=== PATIENT | female | born 1955 | race Caucasian/White ===

== ENCOUNTER 2019-10-02 14:19 | Outpatient (CLI) | payer OTHER, SELFPAY ==
--- NOTE | 2019-10-02 14:30 | MM_ITS ---
WS: [id number] BILATERAL DIGITAL DIAGNOSTIC MAMMOGRAM MAMMOGRAPHY WITH CAD CLINICAL INFORMATION: PALPABLE RT BREAST MASS; BREAST PAIN COMPARISON: None. TECHNIQUE: Bilateral CC, MLO, and ML views. FINDINGS: The breasts are composed of heterogeneous fibroglandular density, which can limit the detection of sm all underlying mass lesions. Palpable marker right breast. Dense heterogeneous and pleomorphic calcif ications deep to the palpable marker mid depth right breast along the posterior nipple line. Some of these are in a ductal distribution. Dense parenchymal tissue along the posterior nipple line. Ultraso und right breast is pending. No suspicious mammographic abnormalities left breast. ULTRASOUND BREAST RIGHT TECHNIQUE: Ultrasound right breast focused area of concern. CLINICAL INFORMATION: PALPABLE RT BREAST MASS; BREAST PAIN COMPARISON: None. FINDINGS: Ultrasound right breast 8:00 position deep to the areola along the posterior nipple line. Heterogeneo us dense ill-defined shadowing lesion measuring 2.3 x 0.7 CM at the 9:00 position. Recommend further evaluation with ultrasound-guided biopsy. MM/[place] [id number] IMPRESSION: BI-RADS: 4C-Suspicious: Moderate FOLLOW UP: US Guided Biopsy Recommended IN ADDITION, RECOMMEND STEREOTACTIC BIOPSY OF THE HETEROGENEOUS AND PLEOMORPHIC CALCIFICATIONS ALONG THE RIGHT POSTERIOR NIPPLE LINE.
== END 2019-10-02 14:20 | disposition home or self-care (01) ==
LOC: RADSHAW 14:24
PROVIDERS: PCP Nurse Practitioner; Visit Provider Nurse Practitioner
DX: N63.13 Unspecified lump in the right breast, lower outer quadrant (principal); N64.4 Mastodynia
CPT/HCPCS: 76642; 77066

== ENCOUNTER 2019-10-07 12:35 | Outpatient (CLI) | payer OTHER, SELFPAY ==
--- NOTE | 2019-10-07 12:45 | MM_ITS ---
WS: [id number] STEREOTACTIC RIGHT BREAST BIOPSY WITH VACUUM ASSISTANCE HISTORY: Linear group of calcifications in the posterior RIGHT breast. These are separate from the la rger cluster of calcifications in the anterior breast with the soft tissues associated mass. This lar handy more anterior mass will be biopsied by ultrasound. COMPARISON: 10/02/2019 Procedure, risks and complications were explained to the patient. Medications and prior radiographs a re reviewed. RIGHT breast calcifications are located, posterior near the 8-9 o'clock axis. Calcifications are targ eted in the oblique projection. The skin is cleansed with ChloraPrep and anesthetized with 1% buffere d lidocaine. Deeper soft tissues anesthetized with a combination of lidocaine and epinephrine. Small dermatome is made. Needle advanced into the RIGHT breast. Stereotactic imaging reveals appropriate po sitioning adjacent calcifications. Multiple vacuum-assisted core biopsies are obtained. No complicati ons were encountered. Post biopsy specimen radiograph reveals numerous calcifications. Biopsy clip is placed in the cavity. Post imaging reveals good placement of the clip. No migration. Pressures held for approximately 15 minutes. No bleeding. Dressing applied. Patient discharged with n o complications. There is no bleeding. With any questions or complications patient is to return. MM/MM surgical specimen RT IMPRESSION: 1. Uncomplicated RIGHT breast stereotactic biopsy. This biopsy was of the calc ifications in the linear distribution in the posterior inferior RIGHT breast. 2. Specimen contains numerous calcifications. Pathology: Ductal carcinoma in situ. Multifocal dystrophic calcifications and f ibrocystic disease. RECOMMENDATION: Surgical and oncologic follow-up.
--- NOTE | 2019-10-07 12:45 | MM_ITS ---
WS: [id number] STEREOTACTIC RIGHT BREAST BIOPSY WITH VACUUM ASSISTANCE HISTORY: Linear group of calcifications in the posterior RIGHT breast. These are separate from the la rger cluster of calcifications in the anterior breast with the soft tissues associated mass. This lar handy more anterior mass will be biopsied by ultrasound. COMPARISON: 10/02/2019 Procedure, risks and complications were explained to the patient. Medications and prior radiographs a re reviewed. RIGHT breast calcifications are located, posterior near the 8-9 o'clock axis. Calcifications are targ eted in the oblique projection. The skin is cleansed with ChloraPrep and anesthetized with 1% buffere d lidocaine. Deeper soft tissues anesthetized with a combination of lidocaine and epinephrine. Small dermatome is made. Needle advanced into the RIGHT breast. Stereotactic imaging reveals appropriate po sitioning adjacent calcifications. Multiple vacuum-assisted core biopsies are obtained. No complicati ons were encountered. Post biopsy specimen radiograph reveals numerous calcifications. Biopsy clip is placed in the cavity. Post imaging reveals good placement of the clip. No migration. Pressures held for approximately 15 minutes. No bleeding. Dressing applied. Patient discharged with n o complications. There is no bleeding. With any questions or complications patient is to return. MM/[place] vac assist [id number] IMPRESSION: 1. Uncomplicated RIGHT breast stereotactic biopsy. This biopsy was of the calc ifications in the linear distribution in the posterior inferior RIGHT breast. 2. Specimen contains numerous calcifications. Pathology: Ductal carcinoma in situ. Multifocal dystrophic calcifications and f ibrocystic disease. RECOMMENDATION: Surgical and oncologic follow-up.
--- NOTE | 2019-10-07 12:45 | MM_ITS ---
WS: [id number] STEREOTACTIC RIGHT BREAST BIOPSY WITH VACUUM ASSISTANCE HISTORY: Linear group of calcifications in the posterior RIGHT breast. These are separate from the la rger cluster of calcifications in the anterior breast with the soft tissues associated mass. This lar handy more anterior mass will be biopsied by ultrasound. COMPARISON: 10/02/2019 Procedure, risks and complications were explained to the patient. Medications and prior radiographs a re reviewed. RIGHT breast calcifications are located, posterior near the 8-9 o'clock axis. Calcifications are targ eted in the oblique projection. The skin is cleansed with ChloraPrep and anesthetized with 1% buffere d lidocaine. Deeper soft tissues anesthetized with a combination of lidocaine and epinephrine. Small dermatome is made. Needle advanced into the RIGHT breast. Stereotactic imaging reveals appropriate po sitioning adjacent calcifications. Multiple vacuum-assisted core biopsies are obtained. No complicati ons were encountered. Post biopsy specimen radiograph reveals numerous calcifications. Biopsy clip is placed in the cavity. Post imaging reveals good placement of the clip. No migration. Pressures held for approximately 15 minutes. No bleeding. Dressing applied. Patient discharged with n o complications. There is no bleeding. With any questions or complications patient is to return. MM/[place] [id number] IMPRESSION: 1. Uncomplicated RIGHT breast stereotactic biopsy. This biopsy was of the calc ifications in the linear distribution in the posterior inferior RIGHT breast. 2. Specimen contains numerous calcifications. Pathology: Ductal carcinoma in situ. Multifocal dystrophic calcifications and f ibrocystic disease. RECOMMENDATION: Surgical and oncologic follow-up.
--- NOTE | 2019-10-07 12:49 | US_ITS ---
WS: [id number] ULTRASOUND-GUIDED RIGHT BREAST BIOPSY HISTORY: Mass with calcifications at 8:00. COMPARISON: 10/02/2019 Procedure, risks and complications are explained to the patient. Medications are reviewed. Consent is obtained. The soft tissue mass with calcifications in the RIGHT breast is localized with ultrasound. Skin is cl eansed with ChloraPrep and anesthetized with 1% buffered lidocaine. Small dermatome is made. Under st erile conditions mass is biopsied with a 14-gauge Achieve needle. Multiple core biopsies are performe d. Material placed in formalin and sent to pathology for review. No complications encountered. Breast tissue marker (Bard ultrasound enhanced ribbon): Yes. Patient left the radiology suite with no complications. Patient is instructed to return to [facility] [place] or [facility] with any concerns. 1. Uncomplicated core needle biopsy RIGHT breast mass with calcifications at 8:00. US/[place] [id number] IMPRESSION: PATHOLOGY: Focal infiltrating ductal adenocarcinoma, moderately differentiated. Multifocal ductal carcinoma in situ with dystrophic calcifications and necrosi s. RECOMMENDATION: Follow-up with oncology and surgery.
[2019-10-16 09:16] LABS: Miscellaneous Test See Scanned Lab Rpt
== END 2019-10-07 12:36 | disposition home or self-care (01) ==
LOC: RADSHAW 12:37
PROVIDERS: PCP Nurse Practitioner; Visit Provider Nurse Practitioner
DX: C50.511 Malignant neoplasm of lower-outer quadrant of right female breast (principal); R92.1 Mammographic calcification found on diagnostic imaging of breast; N60.11 Diffuse cystic mastopathy of right breast
CPT/HCPCS: 19081; 19083; 77065; 88305; 88361; 88367; 88374; J2001

== ENCOUNTER 2019-10-26 13:43 | Outpatient (CLI) | payer OTHER, SELFPAY ==
--- NOTE | 2019-10-30 10:02 | ONC CON_ITS ---
Dr. Monroe New Patient Note Patient: Karen Polo Unit #: [id number]: 1955 Dicatated By: Young Monroe M.D.Date of Visit: Oct 26, 2019 Onc MED New Patient/Consult Referring Physician: Hailee Malloy A.P.N. History of Present Illness: Mrs. Karen Polo, is a 64-year-old female with right nipple dryness, and some discharge subsequently developed mass in her right breast for which she underwent mammogram on 10/02/2019 which showed dense heterogeneous and pleomorphic calcification in the right breast along the posterior nipple line, further evaluated with ultrasound of right breast showed heterogeneous dense ill-defined shadowing lesion measuring 2.3 x 0.7 cm at 9:00 position. On 10/07/2019, she underwent ultrasound-guided biopsy of right breast mass which showed multifocal dystrophic calcification, ductal carcinoma in situ, focal infiltrating ductal adenocarcinoma, moderately differentiated. Patient denies any right axilla lymphadenopathy . Patient has history of chronic neck and low back pain due to arthritis. History of dyslipidemia. Denies any headaches blurred vision double vision denies any new bony pains denies any jaundice denies any weight loss denies any other new symptoms. Past Medical History: Ms. Polo's medical history consists of arthritis and dyslipidemia. Past Surgical History: Ms. Polo's surgical/procedural history consists of section x2. Medications: blueberry extract 1 Capsule Oral daily, ARIANA 1 Capsule Oral daily, Grape Seed Extract 1 Capsule Oral daily, Mag Glycinate 1 Tablet (of 100 mg) Oral daily, Melatonin 1 Capsule Oral at bedtime, Methyl Folate 1 Powder daily, mushrooms 1 Capsule daily, Ayer 3 1 Capsule Oral daily, Selenium 1 Capsule Oral daily, Turmeric 1 Capsule Oral daily, Vitamin B-6 1 Tablet (of 250 mg) Oral daily, Vitamin C 1 Capsule Oral daily, Vitamin D-3 1 Tablet (of 125 mcg ) Oral daily Allergies: No Known Allergies. Social History: Ms. Polo is . Ms. Polo has never smoked. She has no history of drinking. Family History: Ms. Polo's mother is alive. Ms. Pool's father at age 86: blood clot. pt states she has a family history of aunts and uncles having cancer. ovarian, leukemia, throat and lung. Review Of Symptoms: Constitutional - Appetite is good and weight is stable. No fever, chills, hot flashes, or night sweats. Energy level is good, ENMT - No sinus congestion/drainage. No mouth sores. No sore throat or difficulty swallowing, Hematologic/Lymphatic - No abnormal bruising or bleeding, Respiratory - No shortness of breath. No cough. No pleuritic pain or hemoptysis, Cardiovascular - No angina pain. No palpitations, Gastrointestinal - No nausea or vomiting. No heartburn or acid reflux. No diarrhea or constipation. No blood in the stool or black stools, Genitourinary (F) - No dysuria or hematuria. No urinary frequency. No urgency or incontinence, Musculoskeletal - No joint or bone pain, Neurologic - No headache or dizziness. No numbness/paresthesias or other focal neurologic symptoms, Psychiatric - Positive for situational anxiety, no depression. No insomnia. Vital Signs: Most recent vitals are not available for this patient. Performance Status: 0 - Fully active, able to carry on all predisease activities without restrictions. (ECOG) Physical Examination: ENMT - No oral exudates, ulcers, masses, thrush or mucositis. Oropharynx clear. Tongue normal, Respiratory - Lungs are clear to auscultation without rhonchi or wheezing, Cardiovascular - Regular rate and rhythm of heart , no right axillary lymphadenopathy noticed, Abdomen - Non-tender, non-distended, Good bowel sounds. No guarding or rebound tenderness. No pulsatile masses, Extremities - no edema. Lab/Imaging: Most recent lab results are not available for this patient. Impression: Infiltrating ductal adenocarcinoma, moderately differentiated per ultrasound-guided biopsy of right breast done on 10/07/2019 Mammogram done on 10/02/2019 showed dense heterogeneous pleomorphic calcification in the right breast, ultrasound right breast confirmed 2.3 x 0.7 cm heterogeneous dense ill-defined shadowing lesion at 9:00 position. History of chronic neck/lower back pain due to arthritis. Plan: Discussed with patient regarding her disease status, and further treatment options . At this point, we'll refer her to surgery for evaluation, patient was informed that she can consider lumpectomy followed by radiation therapy or modified radical mastectomy followed by reconstruction. Patient will discuss options with her and then with the surgeon. We will review molecular profiling e.g. ER/[place] status ,HER-2/flavio status and based on that we will make further recommendations Patient will return to clinic 1 week after surgery for further discussion and planning. Signed By: Young Monroe M.D. <<Signature on File>>
--- NOTE | 2019-12-07 13:46 | ONC CON_ITS ---
Dr. Monroe New Patient Note Patient: Karen Polo Unit #: [id number]: 1955 Dicatated By: Young Monroe M.D.Date of Visit: Oct 26, 2019 Onc MED New Patient/Consult Referring Physician: Hailee Malloy A.P.N. History of Present Illness: Mrs. Karen Polo, is a 64-year-old female with right nipple dryness, and some discharge subsequently developed mass in her right breast for which she underwent mammogram on 10/02/2019 which showed dense heterogeneous and pleomorphic calcification in the right breast along the posterior nipple line, further evaluated with ultrasound of right breast showed heterogeneous dense ill-defined shadowing lesion measuring 2.3 x 0.7 cm at 9:00 position. On 10/07/2019, she underwent ultrasound-guided biopsy of right breast mass which showed multifocal dystrophic calcification, ductal carcinoma in situ, focal infiltrating ductal adenocarcinoma, moderately differentiated. Patient denies any right axilla lymphadenopathy . Patient has history of chronic neck and low back pain due to arthritis. History of dyslipidemia. Denies any headaches blurred vision double vision denies any new bony pains denies any jaundice denies any weight loss denies any other new symptoms. Past Medical History: Ms. Polo's medical history consists of arthritis and dyslipidemia. Past Surgical History: Ms. Polo's surgical/procedural history consists of section x2. Medications: blueberry extract 1 Capsule Oral daily, ARIANA 1 Capsule Oral daily, Grape Seed Extract 1 Capsule Oral daily, Mag Glycinate 1 Tablet (of 100 mg) Oral daily, Melatonin 1 Capsule Oral at bedtime, Methyl Folate 1 Powder daily, mushrooms 1 Capsule daily, [place] 3 1 Capsule Oral daily, Selenium 1 Capsule Oral daily, Turmeric 1 Capsule Oral daily, Vitamin B-6 1 Tablet (of 250 mg) Oral daily, Vitamin C 1 Capsule Oral daily, Vitamin D-3 1 Tablet (of 125 mcg ) Oral daily Allergies: No Known Allergies. Social History: Ms. Polo is . Ms. Polo has never smoked. She has no history of drinking. Family History: Ms. Polo's mother is alive. Ms. Polo's father at age 86: blood clot. pt states she has a family history of aunts and uncles having cancer. ovarian, leukemia, throat and lung. Review Of Symptoms: Constitutional - Appetite is good and weight is stable. No fever, chills, hot flashes, or night sweats. Energy level is good, ENMT - No sinus congestion/drainage. No mouth sores. No sore throat or difficulty swallowing, Hematologic/Lymphatic - No abnormal bruising or bleeding, Respiratory - No shortness of breath. No cough. No pleuritic pain or hemoptysis, Cardiovascular - No angina pain. No palpitations, Gastrointestinal - No nausea or vomiting. No heartburn or acid reflux. No diarrhea or constipation. No blood in the stool or black stools, Genitourinary (F) - No dysuria or hematuria. No urinary frequency. No urgency or incontinence, Musculoskeletal - No joint or bone pain, Neurologic - No headache or dizziness. No numbness/paresthesias or other focal neurologic symptoms, Psychiatric - Positive for situational anxiety, no depression. No insomnia. Vital Signs: Most recent vitals are not available for this patient. Performance Status: 0 - Fully active, able to carry on all predisease activities without restrictions. (ECOG) Physical Examination: ENMT - No oral exudates, ulcers, masses, thrush or mucositis. Oropharynx clear. Tongue normal, Respiratory - Lungs are clear to auscultation without rhonchi or wheezing, Cardiovascular - Regular rate and rhythm of heart , no right axillary lymphadenopathy noticed, Abdomen - Non-tender, non-distended, Good bowel sounds. No guarding or rebound tenderness. No pulsatile masses, Extremities - no edema. Lab/Imaging: Test performed on December 04, 2019 09:05 Sodium 137 mmol/L Potassium 4.0 mmol/L Chloride 98 mmol/L CO2 25 mmol/L Anion Gap 18.0 BUN 13 mg/dL Creatinine 0.6 mg/dL eGFR 101.0 mL/min Glucose 72 mg/dL Calcium 9.9 mg/dL Protein, Total 7.8 g/dL Albumin 4.5 g/dL Globulin 3.3 g/dL Bilirubin, Total 0.4 mg/dL ALT (SGPT) 46 U/L AST (SGOT) 38 U/L Alkaline Phosphatase 58 IU/L WBC 5.8 10 3/uL RBC 4.73 10 6/uL HGB 14.5 g/dL HCT 44.8 % MCV 94.7 fL MCH 30.7 pg MCHC 32.4 g/dL RDW 14.2 % Platelet Count 206 10 3/cmm MPV 11.1 fL Neutrophils 2.9 10 3/uL Lymphocytes 2.0 10 3/uL Monocytes 0.7 10 3/uL Eosinophils 0.2 10 3/uL Basophils 0.0 10 3/uL Neutrophil % 50.1 % Lymphocyte % 35.1 % Monocyte % 11.2 % Eosinophil % 2.9 % Basophils % 0.5 % Impression: Infiltrating ductal adenocarcinoma, moderately differentiated per ultrasound-guided biopsy of right breast done on 10/07/2019 Mammogram done on 10/02/2019 showed dense heterogeneous pleomorphic calcification in the right breast, ultrasound right breast confirmed 2.3 x 0.7 cm heterogeneous dense ill-defined shadowing lesion at 9:00 position. History of chronic neck/lower back pain due to arthritis. Plan: Discussed with patient regarding her disease status, and further treatment options . At this point, we'll refer her to surgery for evaluation, patient was informed that she can consider lumpectomy followed by radiation therapy or modified radical mastectomy followed by reconstruction. Patient will discuss options with her and then with the surgeon. We will review molecular profiling e.g. ER/LA status ,HER-2/flavio status and based on that we will make further recommendations Patient will return to clinic 1 week after surgery for further discussion and planning. Signed By: Young Monroe M.D. <<Signature on File>>
== END 2019-10-26 13:44 | disposition home or self-care (01) ==
PROVIDERS: PCP Nurse Practitioner; Referring Provider Nurse Practitioner; Visit Provider Internal Medicine Hematology & Oncology
DX: C50.511 Malignant neoplasm of lower-outer quadrant of right female breast (principal); G89.29 Other chronic pain; M47.812 Spondylosis without myelopathy or radiculopathy, cervical region; M47.817 Spondylosis without myelopathy or radiculopathy, lumbosacral region
CPT/HCPCS: 99203

== ENCOUNTER 2019-11-03 07:42 | Day surgery (SDC) | payer OTHER, SELFPAY ==
[2019-11-02 15:27] VITALS: BMI 19.8
[2019-11-03] VITALS (12 sets, daily range): BP systolic 140–176; BP diastolic 58–97; PULSE 57–88; RESP 16–99; TEMP 36.4–37.2; O2SAT 95–100
--- NOTE | 2019-11-03 07:52 | NM_ITS ---
WS: [id number] NUCLEAR MEDICINE SENTINEL LYMPH NODE IMAGING HISTORY: carcinoma in situ right breast COMPARISON: None available. TECHNIQUE: The patient was injected with 0.85 mCi of Technetium 99 ultra filtered sulfur colloid. Inj ection is intradermal in a periareolar location. Four aliquots are used. Uncomplicated injection in the RIGHT breast. NM/NM sentinel node inject [id number] IMPRESSION: Uncomplicated RIGHT breast sentinel node injection.
--- NOTE | 2019-11-03 08:04 | MM_ITS ---
WS: [id number] STEREOTACTIC RIGHT BREAST NEEDLE LOCALIZATION HISTORY: RIGHT BREAST CA COMPARISON: 10/07/2019, 10/02/2019 Procedure, risks and complications are explained to the patient. Consent has been obtained. Localization of calcifications is done with stereotactic technique. There is a large area of calcific ations. These calcifications will be bracketed by wires. Skin is cleansed with ChloraPrep and anesthe tized with 1% buffered lidocaine. Kopans needle is inserted to the level of the calcifications. Needl es are advanced 1.0-0.5 cm beyond the calcifications. Calcifications are localized in the outer inferior quadrant of the RIGHT breast. Due to the extensive calcification burden 3 localization wires have been placed to bracket the calcifications and to incl ude calcifications that are slightly deviated from the course. Wires are secured and the patient is s ent to the OR with no complications. Post imaging radiograph reveals wires in satisfactory position. SPECIMEN RADIOGRAPH: Specimen radiograph contains the wires and calcifications. MM/MM surgical specimen RT IMPRESSION: 1. Satisfactory localization of calcifications in the inferior lateral RIGHT b reast. 3 localization wires were placed. 2. Post operative specimen radiograph reveals the calcifications are probably all present. PATHOLOGY: Invasive ductal carcinoma and extensive ductal carcinoma in situ wit h comedo pattern and focal lobular involvement. Closest margin of invasive carc inoma is along the inferior margin, less than 1 mm. Please refer to pathology r eport for further details. RECOMMENDATION: Follow-up with oncology and surgery.
--- NOTE | 2019-11-03 08:04 | MM_ITS ---
WS: [id number] STEREOTACTIC RIGHT BREAST NEEDLE LOCALIZATION HISTORY: RIGHT BREAST CA COMPARISON: 10/07/2019, 10/02/2019 Procedure, risks and complications are explained to the patient. Consent has been obtained. Localization of calcifications is done with stereotactic technique. There is a large area of calcific ations. These calcifications will be bracketed by wires. Skin is cleansed with ChloraPrep and anesthe tized with 1% buffered lidocaine. Kopans needle is inserted to the level of the calcifications. Needl es are advanced 1.0-0.5 cm beyond the calcifications. Calcifications are localized in the outer inferior quadrant of the RIGHT breast. Due to the extensive calcification burden 3 localization wires have been placed to bracket the calcifications and to incl ude calcifications that are slightly deviated from the course. Wires are secured and the patient is s ent to the OR with no complications. Post imaging radiograph reveals wires in satisfactory position. SPECIMEN RADIOGRAPH: Specimen radiograph contains the wires and calcifications. MM/[place] [id number] IMPRESSION: 1. Satisfactory localization of calcifications in the inferior lateral RIGHT b reast. 3 localization wires were placed. 2. Post operative specimen radiograph reveals the calcifications are probably all present. PATHOLOGY: Invasive ductal carcinoma and extensive ductal carcinoma in situ wit h comedo pattern and focal lobular involvement. Closest margin of invasive carc inoma is along the inferior margin, less than 1 mm. Please refer to pathology r eport for further details. RECOMMENDATION: Follow-up with oncology and surgery.
--- NOTE | 2019-11-03 08:04 | MM_ITS ---
WS: [id number] STEREOTACTIC RIGHT BREAST NEEDLE LOCALIZATION HISTORY: RIGHT BREAST CA COMPARISON: 10/07/2019, 10/02/2019 Procedure, risks and complications are explained to the patient. Consent has been obtained. Localization of calcifications is done with stereotactic technique. There is a large area of calcific ations. These calcifications will be bracketed by wires. Skin is cleansed with ChloraPrep and anesthe tized with 1% buffered lidocaine. Kopans needle is inserted to the level of the calcifications. Needl es are advanced 1.0-0.5 cm beyond the calcifications. Calcifications are localized in the outer inferior quadrant of the RIGHT breast. Due to the extensive calcification burden 3 localization wires have been placed to bracket the calcifications and to incl ude calcifications that are slightly deviated from the course. Wires are secured and the patient is s ent to the OR with no complications. Post imaging radiograph reveals wires in satisfactory position. SPECIMEN RADIOGRAPH: Specimen radiograph contains the wires and calcifications. MM/[place] [id number] IMPRESSION: 1. Satisfactory localization of calcifications in the inferior lateral RIGHT b reast. 3 localization wires were placed. 2. Post operative specimen radiograph reveals the calcifications are probably all present. PATHOLOGY: Invasive ductal carcinoma and extensive ductal carcinoma in situ wit h comedo pattern and focal lobular involvement. Closest margin of invasive carc inoma is along the inferior margin, less than 1 mm. Please refer to pathology r eport for further details. RECOMMENDATION: Follow-up with oncology and surgery.
[2019-11-03] MEDS: sodium chloride 0.9% 1,000 ML 30 ML IV (10:16)
--- NOTE | 2019-11-03 10:30 | P.ANESASSM_ITS ---
Pre-Anesthetic Assessment Pre-Anesthetic Assessment: Height/Weight: Height 1.7 m Weight 57.606 kg Temp Pulse Resp BP Pulse Ox 98.9 F 76 16 152/97 97 11/03/19 10:06 11/03/19 10:06 11/03/19 10:06 11/03/19 10:06 11/03/19 10:06 Preop Diagnosis: Right breast cancer Proposed Procedure: Operation Date: 11/03/19 10:20 Proposed Procedures p Breast Biopsy Needle Localization 72421 D05.11(Right) - Fortino Martines MD s Sentinal Lymph Node Biopsy 11314 D05.11(Right) - Fortino Martines MD s Lumpectomy Right(Right) - Fortino Martines MD Last intake: Intake Last Liquid Date 11/02/19 Last Liquid Time 23:00 Last Solid Date 11/02/19 Last Solid Time 21:30 Social: Social History: Alcohol (occ) and No tobacco Exam: Pre-Anes Outpt Exam: alert, oriented x 3, clear to auscultation bilaterally and regular rate & rhythm Airway: Submandibular: WNL Cervical ROM: WNL MP: 2 Dentition: Other (teeth ok, H/O PONV) History/ROS: No significant history except as noted Pulmonary: Pulmonary: None reported CV/HEM: CV/HEM: None reported : : None reported Hepatic: Hepatic: None reported GI: GI: None reported Metabolic: Metabolic: Hyperlipidemia Comments: Breast CA Musc/skel: Musc/skel: None reported Neuropsych: Neuropsych: None reported Anesthetic Plan: ASA status: 2 Anesthesia: Anesthesia Evaluation and General Risk of > 500 ml blood loss (7ml/kg in children): No Meds/Allergies Current Medications: Current Medications Generic Name Dose Route Start Last Admin Trade Name Freq PRN Reason Stop Dose Admin Sodium Chloride 1,000 mls @ 30 ml s/hr 11/03/19 08:30 11/03/19 10:16 Sodium Chloride 0.9% IV 11/04/19 08:29 30 mls/hr .Q24H LEONEL Administration PFSH Anesthesia PFSH: Medical History Breast cancer, right Hyperlipidemia Scoliosis Surgical History History of History of right breast biopsy History of thyroid surgery Family History Family/Other Cancer colon- cancer breast- aunt/grandmother Denies family history of Anesthesia complication Bleeding disorder Social History Smoking and tobacco status: never smoked Second hand smoke exposure: No Alcohol intake: never Adopted: No Caregiver/support person: Yes Lives independently: Yes Household members: spouse Housing: House Marital status: service: No Current occupational status: retired Current occupational exposures/hazards: No Pets and animals: No History of recent travel: No Sexually active: No Current gender identity: Female Jocelyn/Samaritan: [employer] Special jocelyn needs: No Agree to transfusion: No Financial difficulty paying for basics: Decline to Answer Data Anesthesia Cardiac Studies: No Data to Display
--- NOTE | 2019-11-03 11:07 | W.PM.OPSUD ---
Surgery/Procedure H&P Update DATE OF PROCEDURE: November 03, 2019 DATE H&P PERFORMED: 10/30/19 H&P UPDATE INFORMATION: I have reviewed H&P completed within last 30 days, I have examined patient prior to procedure and No changes to prior documentation PREOP DIAGNOSIS: Right breast cancer PLANNED PROCEDURE: Operation Date: 11/03/19 10:20 Proposed Procedures p Breast Biopsy Needle Localization 40915 93191 D05.11(Right) - Fortino Martines MD s Sentinal Lymph Node Biopsy 45739 03500 D05.11(Right) - Fortino Martines MD s Lumpectomy Right(Right) - Fortino Martines MD
[2019-11-03] MEDS: isosulfan blue 10 mg/mL SDV 5mL SUBCUT (12:01)
[2019-11-03] MEDS: lidocaine 1% INJ 20 mL SUBCUT (12:02)
[2019-11-03] MEDS: midazolam 1 mg/mL INJ 2 mL IVP ×2 (13:32→13:36)
[2019-11-03] MEDS: ondansetron 2 mg/ML SDV 2 mL 4 MG IVP (13:34)
--- NOTE | 2019-11-03 13:46 | SUR.PHASEI ---
1315 PT TO PACU AWAKE ALERT TALKATIVE, RESTLESS DENIES PAIN GOOD RESP EFFORT VSS RT BREAST DRESSING D/I BRA IN PLACE 1332 PT TEARFUL RESTLESS, TALKATIVE, C/O OF NAUSES DR CHAVEZ AT BEDSIDE AND VERSED ORDERED WELL ZOFRAN SEE MEDS GIVEN 1348 PT RESTING QUIETLY WITH NO DISTRESS DR REAL AT BEDSIDE PT AWAKES EASILY AND ASKS APPROP QUESTIONS, VSS. SATS 94-96% ON RA.
--- NOTE | 2019-11-04 14:18 | PM.OP ---
Operative Report Date of procedure: November 03, 2019 Pre-op Diagnosis: Right breast cancer Post-op Diagnosis: DCIS right breast at 8:00 Infiltrating ductal carcinoma right breast Procedure Done: Wire localization partial mastectomy right breast [place] lymph node biopsy right axilla Injection of Lymphazurin Lymphatic mapping for sentinel lymph node biopsy Pathology: Right breast mass, short stitch superior, long stitch lateral Shave margins from superior, inferior, medial, lateral and posterior edge of the lumpectomy cavity Right axillary sentinel lymph node Surgeon: Fortino Martines Anesthesia: General Estimated blood loss (mL): 10 Condition: stable Disposition: PACU Procedure: The wire localization of the mammographic abnormality was performed by the radiologist under mammographic guidance and the patient was transferred to operating room and placed under MAC after IV antibiotic had been administered. The right breast was prepped and draped in a manner . A curvilinear incision was made over the areolar margin at 9'o clock inferior to the marking over the mammographic abnormality, subcutaneous tissue was divided and skin flaps were raised medially and laterally.. The localization wire was grasped through the incision and using electrocautery the wire along with the breast tissue containing mammographic abnormality was dissected free from the surrounding tissue. Using 2-0 silk suture, short stitch was placed superiorly and a long stitch was placed laterally.The wound was irrigated with saline, hemostasis ensured with electrocautery and subcutaneous tissues approximated using 3-0 running Vicryl suture and skin was closed using running subcuticular 4-0 Monocryl sutures and Dermabond. A technetium sulfur colloid had been injected previously by the radiologist in the periareolar area. 5 mL of 1% Lymphazurin was injected in the subareolar location. The breast was massaged for 5 minutes and a 2 cm incision was made in the left axilla at the edge of the hairline. The subcutaneous tissue and clavipectoral fascia was divided with electrocautery and gentle dissection revealed lymphatics with stained lymph nodes. Using electrocautery 3 lymph nodes were dissected free. Examination of the axilla did not reveal any other lymph nodes with radioactivity. The clavipectoral and subcutaneous tissue was approximated using running 3-0 Vicryl suture and skin was closed using running subcuticular 4-0 Monocryl suture and Dermabond. Fluffs were used for pressure dressing. Patient was transferred to recovery room and stable condition The lumpectomy specimens were sent to mammography to obtain radiological confirmation of complete excision of the mammographic abnormality.
== END 2019-11-03 14:45 | disposition home or self-care (01) ==
PROVIDERS: PCP Nurse Practitioner; Visit Provider Surgery
PROC: (CPT 19301; principal; 2019-11-03 10:00)
PROC: (CPT 19301; 2019-11-03 10:00)
PROC: (CPT 19301; 2019-11-03 10:00)
DX: C50.911 Malignant neoplasm of unspecified site of right female breast (principal); E78.5 Hyperlipidemia, unspecified
CPT/HCPCS: 19301; 12345; 19281; 38792; 77065; 88305; A9541; J0690; J1100; J1885; J2001; J2250; J2405; J2704; J3010; J3490; J7030; Q9968

== ENCOUNTER 2019-12-04 09:05 | Outpatient (CLI) | payer OTHER, SELFPAY ==
[2019-12-04 14:37] LABS: Basophils % 0.5 %; Eosinophils # 0.2 10^3/uL (0.0-0.8); Eosinophils % 2.9 %; Hematocrit 44.8 % (37.0-47.0); Hemoglobin 14.5 g/dL (11.5-15.3); Lymphocytes % 35.1 %; Mean Corpuscular HGB Conc 32.4 g/dL (30.0-36.0); Mean Corpuscular Hemoglobin 30.7 pg (28.0-34.0); Mean Corpuscular Volume 94.7 fL (81-99); Mean Platelet Volume 11.1 fL (7.4-10.4); Monocytes # 0.7 10^3/uL (0.2-0.9); Monocytes % 11.2 %; Neutrophils # 2.9 10^3/uL (1.8-7.7); Neutrophils % 50.1 %; Nucleated Red Blood Cells % 0 %; Platelet Count 206 10^3/cmm (130-400); Red Blood Count 4.73 10^6/uL (4.1-5.3); Red Cell Distribution Width 14.2 % (12.1-15.1); White Blood Count 5.8 10^3/uL (4.0-10.0)
[2019-12-04 16:23] LABS: Alanine Aminotransferase 46 U/L (0-33); Albumin Level 4.5 g/dL (3.5-5.2); Alkaline Phosphatase 58 IU/L (35-105); Aspartate Amino Transferase 38 U/L (0-32); Blood Urea Nitrogen 13 mg/dL (8-23); Calcium 9.9 mg/dL (8.5-10.5); Carbon Dioxide 25 mmol/L (22-29); Chloride 98 mmol/L (98-107); Globulin 3.3 g/dL (1.3-4.6); Glucose 72 mg/dL (65-115); Osmolality Calculated 279 mOsm/kg (285-295); Sodium 137 mmol/L (136-145); Total Bilirubin 0.4 mg/dL (0.15-1.2); Total Protein 7.8 g/dL (6.6-8.7)
== END 2019-12-04 09:06 | disposition home or self-care (01) ==
LOC: ONCMED 14:27
PROVIDERS: PCP Nurse Practitioner; Visit Provider Internal Medicine Hematology & Oncology
DX: C50.811 Malignant neoplasm of overlapping sites of right female breast (principal)
CPT/HCPCS: 36415; 80053; 85025

== ENCOUNTER 2019-12-07 15:01 | Outpatient (CLI) | payer OTHER, SELFPAY ==
--- NOTE | 2019-12-07 17:07 | ONC FU_ITS ---
Dr. Monroe follow up note Patient: Karen Polo Unit #: [id number]: 1955 Dicatated By: Young Monroe M.D.Date of Visit:December 07, 2019 Onc Med Follow-up/Prog Note History of Present Illness: Mrs. Karen Polo, is a 64-year-old female with right nipple dryness, and some discharge subsequently developed mass in her right breast for which she underwent mammogram on 10/02/2019 which showed dense heterogeneous and pleomorphic calcification in the right breast along the posterior nipple line, further evaluated with ultrasound of right breast showed heterogeneous dense ill-defined shadowing lesion measuring 2.3 x 0.7 cm at 9:00 position. On 10/07/2019, she underwent ultrasound-guided biopsy of right breast mass which showed multifocal dystrophic calcification, ductal carcinoma in situ, focal infiltrating ductal adenocarcinoma, moderately differentiated.ER less than 1%, NC less than 1% and HER-2/flavio 3+ and positive for HER-2/flavio overexpression and gene over amplification. On 11/03/2019 patient underwent right breast lumpectomy and sentinel lymph node biopsy and final pathology report shows invasive carcinoma and carcinoma in situ together measure at least 13 mm in greatest dimension with extensive ductal carcinoma in situ, with positive surgical margins and she underwent reexcision and obtain clear surgical margins. 0 out of 6 lymph node showed metastatic disease. ER/NC /HER-2/flavio status was not checked on lumpectomy specimen Came for follow-up, denies any specific complaints, no fever or chills, no nausea or vomiting, no diarrhea constipation, tolerated right breast lumpectomy well. Medications: blueberry extract 1 Capsule Oral daily, ARIANA 1 Capsule Oral daily, Grape Seed Extract 1 Capsule Oral daily, iodoral 25 mg Tablet Mouth/throat daily, Mag Glycinate 1 Tablet (of 100 mg) Oral daily, Melatonin 1 Capsule Oral at bedtime, Methyl Folate 1 Powder daily, mushrooms 1 Capsule daily, [place] 3 1 Capsule Oral daily, Selenium 1 Capsule Oral daily, Turmeric 1 Capsule Oral daily, Vitamin B-6 1 Tablet (of 250 mg) Oral daily, Vitamin C 1 Capsule Oral daily, Vitamin D-3 1 Tablet (of 125 mcg ) Oral daily Allergies: No Known Allergies. Review of Systems: Review of Systems is not available for this patient. Vital Signs: Performed on December 07, 2019 15:10 Height - 66.5 in Weight - 129.6 lbs (HIGH) BSA - 1.67 sq.m BMI - 20.60 Temperature - 98.7 F Pulse - 67 /min Respiration - 17 /min BP - 130/80 mm(hg) O2 Sat - 100 % Pain - 0 Performance Status: 0 - Fully active, able to carry on all predisease activities without restrictions. (ECOG) Physical Examination: Respiratory - Lungs are clear, Cardiovascular - Regular rate and rhythm of heart, Extremities - no visible edema. Lab/Imaging: Test performed on December 04, 2019 09:05 Sodium 137 mmol/L Potassium 4.0 mmol/L Chloride 98 mmol/L CO2 25 mmol/L Anion Gap 18.0 BUN 13 mg/dL Creatinine 0.6 mg/dL eGFR 101.0 mL/min Glucose 72 mg/dL Calcium 9.9 mg/dL Protein, Total 7.8 g/dL Albumin 4.5 g/dL Globulin 3.3 g/dL Bilirubin, Total 0.4 mg/dL ALT (SGPT) 46 U/L AST (SGOT) 38 U/L Alkaline Phosphatase 58 IU/L WBC 5.8 10 3/uL RBC 4.73 10 6/uL HGB 14.5 g/dL HCT 44.8 % MCV 94.7 fL MCH 30.7 pg MCHC 32.4 g/dL RDW 14.2 % Platelet Count 206 10 3/cmm MPV 11.1 fL Neutrophils 2.9 10 3/uL Lymphocytes 2.0 10 3/uL Monocytes 0.7 10 3/uL Eosinophils 0.2 10 3/uL Basophils 0.0 10 3/uL Neutrophil % 50.1 % Lymphocyte % 35.1 % Monocyte % 11.2 % Eosinophil % 2.9 % Basophils % 0.5 % Impression: right breast postlumpectomy pathology report which showed invasive ductal carcinoma grade 1/3 with extensive ductal carcinoma in situ and invasive carcinoma and carcinoma in situ to gather measured 13 mm in greatest dimension microscopically. Surgical margins positive but underwent reexcision, with clear surgical margins. 6 lymph nodes were examined showed no metastatic disease. Infiltrating ductal adenocarcinoma, moderately differentiated per ultrasound-guided biopsy of right breast done on 10/07/2019 ER/NC negative, HER-2/flavio 3+, and positive for heart to overexpression and gene over amplification Mammogram done on 10/02/2019 showed dense heterogeneous pleomorphic calcification in the right breast, ultrasound right breast confirmed 2.3 x 0.7 cm heterogeneous dense ill-defined shadowing lesion at 9:00 position. History of chronic neck/lower back pain due to arthritis. Plan: Discussed with patient regarding her labs white blood count 5.8 hemoglobin 14.5 crit 44.8 platelets 206,000 CMP within normal limits and right breast postlumpectomy pathology report which showed invasive ductal carcinoma grade 1/3 with extensive ductal carcinoma in situ and invasive carcinoma and carcinoma in situ to gather measured 13 mm in greatest dimension microscopically. Surgical margins positive but underwent reexcision, with clear surgical margins. 6 lymph nodes were examined showed no metastatic disease. Her, ER/NC HER-2/flavio status was checked on initial biopsy which showed DCIS with focal area of invasive tumor, so question was whether negative ER/NC status and positive HER-2/flavio status is expressed by DCIS component or invasive component, tried to contact pathologist Dr. Johnson, but she was not available, we will discuss with her and if prognostic test was done on DCIS complement then we will request repeating breast cancer prognostic profiling on invasive component in postlumpectomy specimen. Also and final pathology report it was mentioned she has T2 lesion whereas in postlumpectomy pathology report showed 13 mm lesion which include invasive carcinoma and carcinoma in situ together and as mentioned earlier ultrasound-guided biopsy showed mainly DCIS with foci of invasive component. So we will review her pathology report with Dr. Johnson before we make further recommendations. Patient return to clinic in 1 week for further discussion unless further testing is required then we will reschedule her . Signed By: Young Monroe M.D. <<Signature on File>>
== END 2019-12-07 15:02 | disposition home or self-care (01) ==
LOC: ONCMED 15:03
PROVIDERS: PCP Nurse Practitioner; Visit Provider Internal Medicine Hematology & Oncology
DX: C50.811 Malignant neoplasm of overlapping sites of right female breast (principal); Z17.1 Estrogen receptor negative status [ER-]; G89.4 Chronic pain syndrome; M19.90 Unspecified osteoarthritis, unspecified site
CPT/HCPCS: G0463

== ENCOUNTER 2020-01-01 08:46 | Outpatient (RCR) | payer OTHER, SELFPAY ==
--- NOTE | 2020-01-01 | USCV_ITS ---
Karen Polo Age: 64 Gender: F : 1955 Exam Date: 01/01/2020 09:09 Ordering Phys: Young Monroe MD Technologist: Alexa Cralin [place] [facility] [place]: BP: / HR: 79 Rhythm: Sinus Technical Quality: Adequate MEASUREMENTS (Male / Female) Normal Values 2D ECHO LV Diastolic Diameter PLAX 4.2 cm 4.2 - 5.9 / 3.9 - 5.3 cm LV Systolic Diameter PLAX 2.8 cm LV Chamber Size 2.7 cm IVS Diastolic Thickness 1.3 cm 0.6 - 1.0 / 0.6 - 0.9 cm IVS Systolic Thickness 1.4 cm LVPW Diastolic Thickness 1.0 cm 0.6 - 1.0 / 0.6 - 0.9 cm LVPW Systolic Thickness 1.2 cm RV Chamber Size 2.8 cm LVOT Diameter 2.0 cm LV Ejection Fraction 2D Teich 62.2 % LV Ejection Fraction MOD 2C 56.3 % LV Ejection Fraction 2C AL 63.5 % LA Diameter 3.6 cm LA Width 2.3 cm LA Height 3.0 cm RA Width 3.9 cm RA Height 3.8 cm Aorta at Sinotubular Diameter 3.3 cm M-MODE LV Diastolic Diameter MM 4.3 cm 4.2 - 5.9 / 3.9 - 5.3 cm LV Systolic Diameter MM 3.0 cm LV Ejection Fraction MM Teich 56.6 % IVS Diastolic Thickness MM 1.1 cm 0.6 - 1.0 / 0.6 - 0.9 cm IVS Systolic Thickness MM 1.7 cm LVPW Diastolic Thickness MM 1.3 cm 0.6 - 1.0 / 0.6 - 0.9 cm LVPW Systolic Thickness MM 1.8 cm RV Diastolic Diameter MM 1.3 cm Aortic Annulus Diameter 3.1 cm LA Ao Ratio MM 1.1 MV E Point Septal Separation 0.6 cm DOPPLER AV Peak Velocity 123.0 cm/s LVOT Peak Velocity 100.0 cm/s AV Area Cont Eq vti 3.2 cm squared AV Area Cont Eq pk 2.7 cm squared MV Area PHT 3.6 cm squared Mitral E to A Ratio 1.3 MV E' Velocity 14.0 cm/s Mitral E to MV E' Ratio 6.2 Mitral E to LV E' Lateral Ratio 5.4 Mitral E to LV E' Septal Ratio 7.2 TR Peak Velocity 279.7 cm/s TR Peak Gradient 31.3 mmHg TR Mean Velocity 245.5 cm/s TR Mean Gradient 25.1 mmHg TR Velocity Time Integral 79.8 cm TV Peak E Velocity 70.0 cm/s PV Peak Velocity 57.0 cm/s RV Acceleration Time 0.1 s RV Ejection Time 0.3 s RV AcT/ET 0.4 FINDINGS Left Ventricle Normal left ventricular size, systolic function and wall thickness, with no regional wall motion abnormalities. Normal left ventricular wall thickness. Normal diastolic filling pattern. Left ventricular ejection fraction is estimated at 65 %. Right Ventricle The right ventricle is normal in size and function. Right Atrium The right atrium is normal in size. Left Atrium The left atrium is normal in size. Mitral Valve Structurally normal mitral valve. Trace mitral valve regurgitation. Aortic Valve Structurally normal aortic valve without significant sclerosis or stenosis. There is no aortic regurgitation. Tricuspid Valve Structurally normal tricuspid valve without significant stenosis or regurgitation. Pulmonary artery systolic pressure is normal. Pulmonic Valve Structurally normal pulmonic valve without significant stenosis. There is no pulmonic regurgitation. Pericardium Normal pericardium without effusion. Aorta Normal ascending aorta dimension. CONCLUSIONS Normal left ventricular size, systolic function and wall thickness, with no regional wall motion abnormalities. Normal left ventricular wall thickness. Normal diastolic filling pattern. Left ventricular ejection fraction is estimated at 65 %. Structurally normal mitral valve. Trace mitral valve regurgitation. There are no prior echocardiogram studies to compare. Dr. Omid Watson MD (Electronically Signed) Final Date: 01 Jan 2020 13:27 S
--- NOTE | 2020-01-01 14:15 | ONC FU_ITS ---
Dr. Monroe follow up note Patient: Karen Polo Unit #: [id number]: 1955 Dicatated By: Young Monroe M.D.Date of Visit:December 30, 2019 Onc Med Follow-up/Prog Note History of Present Illness: Mrs. Karen Polo, is a 64-year-old female with right nipple dryness, and some discharge subsequently developed mass in her right breast for which she underwent mammogram on 10/02/2019 which showed dense heterogeneous and pleomorphic calcification in the right breast along the posterior nipple line, further evaluated with ultrasound of right breast showed heterogeneous dense ill-defined shadowing lesion measuring 2.3 x 0.7 cm at 9:00 position. On 10/07/2019, she underwent ultrasound-guided biopsy of right breast mass which showed multifocal dystrophic calcification, ductal carcinoma in situ, focal infiltrating ductal adenocarcinoma, moderately differentiated.ER less than 1%, LA less than 1% and HER-2/flavio 3+ and positive for HER-2/flavio overexpression and gene over amplification. On 11/03/2019 patient underwent right breast lumpectomy and sentinel lymph node biopsy and final pathology report shows invasive carcinoma and carcinoma in situ together measure at least 13 mm in greatest dimension with extensive ductal carcinoma in situ, with positive surgical margins and she underwent reexcision and obtain clear surgical margins. 0 out of 6 lymph node showed metastatic disease. ER/LA /HER-2/flavio status was not checked on lumpectomy specimen , Case was discussed with Dr. Johnson, pathologist as there was a concern regarding breast cancer prognostic profiling , whether he was done on DCIS component or small invasive foci seen on initial breast biopsy. , She was not sure so he was decided to perform breast cancer prognostic profiling on the lumpectomy specimen which was done on 12/18/2019 and it showed Ki-67 14 and ER less than 1% LA less than 1% e.g. both negative and HER-2/flavio 3+ and positive for HER-2/flavio overexpression and gene over amplification. And then there was also concerned about tumor size as in report description it was mentioned that invasive carcinoma and carcinoma in situ to gather measures at least 13 mm in the greatest dimension microscopically whereas staging done by pathology mentioned tumor being more than 20 mm e.g. T2 lesion, Dr. Johnson said based on her size calculation and other slides, total invasive tumor was more than 20 mm thus T2 lesion. And another concern on her repeat breast cancer prognostic profile which was done on 12/18/2019, the specimen supposed was mentioned left breast would patient had disease in the right breast. Along with different specimen ID, it was clarified that he was a typo error and different specimen ID was due to breast cancer prognostic profiling done on the lumpectomy simple. Came for follow-up, denies any specific complaints, no fever or chills, no nausea or vomiting, no diarrhea constipation but anxious about further treatment plans Medications: blueberry extract 1 Capsule Oral daily, ARIANA 1 Capsule Oral daily, Grape Seed Extract 1 Capsule Oral daily, iodoral 25 mg Tablet Mouth/throat daily, Mag Glycinate 1 Tablet (of 100 mg) Oral daily, Melatonin 1 Capsule Oral at bedtime, mushrooms 1 Capsule daily, [place] 3 1 Capsule Oral daily, Selenium 1 Capsule Oral daily, Turmeric 1 Capsule Oral daily, Vitamin C 1 Capsule Oral daily, Vitamin D-3 1 Tablet (of 125 mcg ) Oral daily, Vitamin K2 1 Tablet Oral daily Allergies: No Known Allergies. Review of Systems: Constitutional - Appetite is good and weight is stable. No fever, chills, hot flashes, or night sweats. Energy level is good, ENMT - No sinus congestion/drainage. No mouth sores. No sore throat or difficulty swallowing, Hematologic/Lymphatic - No abnormal bruising or bleeding, Respiratory - No shortness of breath. No cough. No pleuritic pain or hemoptysis, Cardiovascular - No angina pain. No palpitations, Gastrointestinal - No nausea or vomiting. No heartburn or acid reflux. No diarrhea or constipation. No blood in the stool or black stools, Genitourinary (F) - No dysuria or hematuria. No urinary frequency. No urgency or incontinence, Musculoskeletal - No joint or bone pain, Neurologic - No headache or dizziness. No numbness/paresthesias or other focal neurologic symptoms, Psychiatric - Positive for situational anxiety, no depression. No insomnia. Vital Signs: Performed on December 30, 2019 08:08 Height - 66.50 in Temperature - 98.1 F (LOW) Pulse - 67 /min Respiration - 18 /min BP - 116/70 mm(hg) O2 Sat - 99 % Pain - 0 Performance Status: 0 - Fully active, able to carry on all predisease activities without restrictions. (ECOG) Physical Examination: Respiratory - Lungs are clear to auscultation, Cardiovascular - Regular rate and rhythm of heart, Breasts - right breast status post lumpectomy, with nipple retraction but no skin changes or nipple discharge seen, Extremities - no visible edema or rash. Lab/Imaging: Test performed on December 04, 2019 09:05 Sodium 137 mmol/L Potassium 4.0 mmol/L Chloride 98 mmol/L CO2 25 mmol/L Anion Gap 18.0 BUN 13 mg/dL Creatinine 0.6 mg/dL eGFR 101.0 mL/min Glucose 72 mg/dL Calcium 9.9 mg/dL Protein, Total 7.8 g/dL Albumin 4.5 g/dL Globulin 3.3 g/dL Bilirubin, Total 0.4 mg/dL ALT (SGPT) 46 U/L AST (SGOT) 38 U/L Alkaline Phosphatase 58 IU/L WBC 5.8 10 3/uL RBC 4.73 10 6/uL HGB 14.5 g/dL HCT 44.8 % MCV 94.7 fL MCH 30.7 pg MCHC 32.4 g/dL RDW 14.2 % Platelet Count 206 10 3/cmm MPV 11.1 fL Neutrophils 2.9 10 3/uL Lymphocytes 2.0 10 3/uL Monocytes 0.7 10 3/uL Eosinophils 0.2 10 3/uL Basophils 0.0 10 3/uL Neutrophil % 50.1 % Lymphocyte % 35.1 % Monocyte % 11.2 % Eosinophil % 2.9 % Basophils % 0.5 % Impression: right breast postlumpectomy pathology report which showed invasive ductal carcinoma grade 1/3 with extensive ductal carcinoma in situ and invasive carcinoma and carcinoma in situ to gather measured 13 mm in greatest dimension microscopically. Surgical margins positive but underwent reexcision, with clear surgical margins. 6 lymph nodes were examined showed no metastatic disease. Infiltrating ductal adenocarcinoma, moderately differentiated per ultrasound-guided biopsy of right breast done on 10/07/2019 ER/LA negative, HER-2/flavio 3+, and positive for heart to overexpression and gene over amplification Mammogram done on 10/02/2019 showed dense heterogeneous pleomorphic calcification in the right breast, ultrasound right breast confirmed 2.3 x 0.7 cm heterogeneous dense ill-defined shadowing lesion at 9:00 position. History of chronic neck/lower back pain due to arthritis. Plan: Discussed with patient regarding her disease status and clarification of her pathology report, now repeat breast cancer prognostic profiling done on right breast lumpectomy specimen confirmed ER/LA negative HER-2/flavio positive disease and also pathologist clarify about size, patient has T2, N0 MX disease, stage IIA. Being hormonal negative and HER-2/flavio positive role of adjuvant therapy was discussed which would include HER-2/flavio targeted therapy along with chemotherapy In her case we will consider Taxotere 75 mg/m??? Cytoxan 600 mg/m??? every 3 weeks ???4 along with Herceptin for total one year. All the side effect possible benefits associated with chemotherapy regimen were discussed including but not limited to, bone marrow suppression, nausea vomiting, hair loss, peripheral neuropathy, cystitis, cardiac toxicity especially with Herceptin were mentioned patient expressed full understanding and accepted the treatment but she has concern regarding her pathology report , so she may consider second opinion, patient was encouraged and if agreed , we will refer her to [facility] breast [facility] clinic in [place] for evaluation and second opinion. In the meantime we will schedule her for Port-A-Cath placement and echocardiogram and obtain approval from her insurance regarding treatment.and obtain baseline CBC CMP Signed By: Young Monroe M.D. <<Signature on File>>
== END 2020-01-03 23:59 | disposition home or self-care (01) ==
LOC: ONCMED 08:46
PROVIDERS: PCP Nurse Practitioner; Visit Provider Internal Medicine Hematology & Oncology
DX: C50.811 Malignant neoplasm of overlapping sites of right female breast (principal); Z51.81 Encounter for therapeutic drug level monitoring; Z79.899 Other long term (current) drug therapy; Z17.1 Estrogen receptor negative status [ER-]; M19.90 Unspecified osteoarthritis, unspecified site; M54.2 Cervicalgia; M54.5 Low back pain
CPT/HCPCS: 93306; 99214

== ENCOUNTER 2020-01-12 06:55 | Outpatient (RCR) | payer OTHER, SELFPAY ==
[2020-01-12 09:38] LABS: Basophils % 0.7 %; Eosinophils # 0.1 10^3/uL (0.0-0.8); Eosinophils % 1.8 %; Hematocrit 45.5 % (37.0-47.0); Hemoglobin 14.5 g/dL (11.5-15.3); Lymphocytes # 2.2 10^3/uL (0.8-4.8); Lymphocytes % 36.2 %; Mean Corpuscular HGB Conc 31.9 g/dL (30.0-36.0); Mean Corpuscular Hemoglobin 30.7 pg (28.0-34.0); Mean Corpuscular Volume 96.2 fL (81-99); Mean Platelet Volume 10.6 fL (7.4-10.4); Monocytes # 0.7 10^3/uL (0.2-0.9); Monocytes % 11.2 %; Neutrophils % 49.8 %; Nucleated Red Blood Cells % 0 %; Platelet Count 186 10^3/cmm (130-400); Red Blood Count 4.73 10^6/uL (4.1-5.3); Red Cell Distribution Width 14.1 % (12.1-15.1)
[2020-01-12 09:48] LABS: Alanine Aminotransferase 40 U/L (0-33); Albumin Level 4.3 g/dL (3.5-5.2); Alkaline Phosphatase 70 IU/L (35-105); Anion Gap 20.5 (5-19); Aspartate Amino Transferase 35 U/L (0-32); Blood Urea Nitrogen 13 mg/dL (8-23); Carbon Dioxide 22 mmol/L (22-29); Chloride 99 mmol/L (98-107); Globulin 3.3 g/dL (1.3-4.6); Glucose 91 mg/dL (65-115); Osmolality Calculated 282 mOsm/kg (285-295); Potassium 3.5 mmol/L (3.5-5.1); Sodium 138 mmol/L (136-145); Total Bilirubin 0.4 mg/dL (0.15-1.2); Total Protein 7.6 g/dL (6.6-8.7)
--- NOTE | 2020-01-12 18:13 | ONC FU_ITS ---
Dr. Monroe follow up note Patient: Karen Polo Unit #: [id number]: 1955 Dicatated By: Young Monroe M.D.Date of Visit:Jan 12, 2020 Onc Med Follow-up/Prog Note History of Present Illness: Mrs. Karne Polo, is a 64-year-old female with right nipple dryness, and some discharge subsequently developed mass in her right breast for which she underwent mammogram on 10/02/2019 which showed dense heterogeneous and pleomorphic calcification in the right breast along the posterior nipple line, further evaluated with ultrasound of right breast showed heterogeneous dense ill-defined shadowing lesion measuring 2.3 x 0.7 cm at 9:00 position. On 10/07/2019, she underwent ultrasound-guided biopsy of right breast mass which showed multifocal dystrophic calcification, ductal carcinoma in situ, focal infiltrating ductal adenocarcinoma, moderately differentiated.ER less than 1%, NE less than 1% and HER-2/flavio 3+ and positive for HER-2/flavio overexpression and gene over amplification. On 11/03/2019 patient underwent right breast lumpectomy and sentinel lymph node biopsy and final pathology report shows invasive carcinoma and carcinoma in situ together measure at least 13 mm in greatest dimension with extensive ductal carcinoma in situ, with positive surgical margins and she underwent reexcision and obtain clear surgical margins. 0 out of 6 lymph node showed metastatic disease. ER/NE /HER-2/flavio status was not checked on lumpectomy specimen , Case was discussed with Dr. Johnson, pathologist as there was a concern regarding breast cancer prognostic profiling , whether he was done on DCIS component or small invasive foci seen on initial breast biopsy. , She was not sure so he was decided to perform breast cancer prognostic profiling on the lumpectomy specimen which was done on 12/18/2019 and it showed Ki-67 14 and ER less than 1% NE less than 1% e.g. both negative and HER-2/flavio 3+ and positive for HER-2/flavio overexpression and gene over amplification. And then there was also concerned about tumor size as in report description it was mentioned that invasive carcinoma and carcinoma in situ to gather measures at least 13 mm in the greatest dimension microscopically whereas staging done by pathology mentioned tumor being more than 20 mm e.g. T2 lesion, Dr. Johnson said based on her size calculation and other slides, total invasive tumor was more than 20 mm thus T2 lesion. And another concern on her repeat breast cancer prognostic profile which was done on 12/18/2019, the specimen supposed was mentioned left breast would patient had disease in the right breast. Along with different specimen ID, it was clarified that he was a typo error and different specimen ID was due to breast cancer prognostic profiling done on the lumpectomy simple. Echocardiogram done on January 01, 2020 showed ejection fraction 65% Came for follow-up, denies any specific complaints, no fever chills, no nausea or vomiting, no diarrhea constipation, patient scheduled to see breast cancer clinic at [facility] on January 21, 2020 for second opinion and for clinical trial if available And patient wants to wait till her visit to [facility] for any treatment. Medications: blueberry extract 1 Capsule Oral daily, ARIANA 1 Capsule Oral daily, Grape Seed Extract 1 Capsule Oral daily, iodoral 25 mg Tablet Mouth/throat daily, Mag Glycinate 1 Tablet (of 100 mg) Oral daily, Melatonin 1 Capsule Oral at bedtime, mushrooms 1 Capsule daily, [place] 3 1 Capsule Oral daily, Selenium 1 Capsule Oral daily, Turmeric 1 Capsule Oral daily, Vitamin C 1 Capsule Oral daily, Vitamin D-3 1 Tablet (of 125 mcg ) Oral daily, Vitamin K2 1 Tablet Oral daily Allergies: No Known Allergies. Review of Systems: Constitutional - Appetite is good and weight is stable. No fever, chills, hot flashes, or night sweats. Energy level is good, ENMT - No sinus congestion/drainage. No mouth sores. No sore throat or difficulty swallowing, Hematologic/Lymphatic - No abnormal bruising or bleeding, Respiratory - No shortness of breath. No cough. No pleuritic pain or hemoptysis, Cardiovascular - No angina pain. No palpitations, Gastrointestinal - No nausea or vomiting. No heartburn or acid reflux. No diarrhea or constipation. No blood in the stool or black stools, Genitourinary (F) - No dysuria or hematuria. No urinary frequency. No urgency or incontinence, Musculoskeletal - No joint or bone pain, Neurologic - No headache or dizziness. No numbness/paresthesias or other focal neurologic symptoms, Psychiatric - Positive for significant anxiety, no depression. No insomnia. Vital Signs: Performed on Jan 12, 2020 10:40 Height - 66.50 in Weight - 127.2 lbs (LOW) BSA - 1.66 sq.m BMI - 20.22 Temperature - 98.4 F Pulse - 65 /min Respiration - 18 /min BP - 128/65 mm(hg) O2 Sat - 100 % Pain - 0 Performance Status: 0 - Fully active, able to carry on all predisease activities without restrictions. (ECOG) Physical Examination: Respiratory - Lungs are clear to auscultation without rhonchi or wheezing, Cardiovascular - Regular rate and rhythm of heart, Extremities - No visible edema. Lab/Imaging: Test performed on Jan 12, 2020 08:45 Sodium 138 mmol/L Potassium 3.5 mmol/L Chloride 99 mmol/L CO2 22 mmol/L Anion Gap 20.5 BUN 13 mg/dL Creatinine 0.6 mg/dL Cr Clearance (Est) 88.1000 mL/min eGFR 101.0 mL/min Glucose 91 mg/dL Calcium 10.0 mg/dL Protein, Total 7.6 g/dL Albumin 4.3 g/dL Globulin 3.3 g/dL Bilirubin, Total 0.4 mg/dL ALT (SGPT) 40 U/L AST (SGOT) 35 U/L Alkaline Phosphatase 70 IU/L WBC 6.0 10 3/uL RBC 4.73 10 6/uL HGB 14.5 g/dL HCT 45.5 % MCV 96.2 fL MCH 30.7 pg MCHC 31.9 g/dL RDW 14.1 % Platelet Count 186 10 3/cmm MPV 10.6 fL Neutrophils 3.0 10 3/uL Lymphocytes 2.2 10 3/uL Monocytes 0.7 10 3/uL Eosinophils 0.1 10 3/uL Basophils 0.0 10 3/uL Neutrophil % 49.8 % Lymphocyte % 36.2 % Monocyte % 11.2 % Eosinophil % 1.8 % Basophils % 0.7 % NRBC % 0 % Impression: right breast postlumpectomy pathology report which showed invasive ductal carcinoma grade 1/3 with extensive ductal carcinoma in situ and invasive carcinoma and carcinoma in situ to gather measured 13 mm in greatest dimension microscopically. Surgical margins positive but underwent reexcision, with clear surgical margins. 6 lymph nodes were examined showed no metastatic disease. Infiltrating ductal adenocarcinoma, moderately differentiated per ultrasound-guided biopsy of right breast done on 10/07/2019 ER/NE negative, HER-2/flavio 3+, and positive for heart to overexpression and gene over amplification Mammogram done on 10/02/2019 showed dense heterogeneous pleomorphic calcification in the right breast, ultrasound right breast confirmed 2.3 x 0.7 cm heterogeneous dense ill-defined shadowing lesion at 9:00 position. History of chronic neck/lower back pain due to arthritis. Plan: Discussed with patient regarding her labs white blood count 6 hemoglobin 14.5 crit 45.5 platelets under 66,000 CMP within normal limits except ALT is 40 Clinically, patient is doing well, with no new signs symptoms, patient was scheduled for Port-A-Cath placement but patient postponed it till her visit to breast cancer clinic at [facility] in [place] for second opinion and for clinical trial if available. Her pretreatment echocardiogram shows ejection fraction more than 65%. Patient is scheduled to go to [facility] on January 21, 2020, she will return to clinic following week for further discussion regarding treatment planning if decided to come back here for further treatment Signed By: Young Monroe M.D. <<Signature on File>>
== END 2020-02-02 23:59 | disposition home or self-care (01) ==
LOC: ONCMED 06:55
PROVIDERS: PCP Nurse Practitioner; Visit Provider Internal Medicine Hematology & Oncology
DX: C50.811 Malignant neoplasm of overlapping sites of right female breast (principal); Z17.1 Estrogen receptor negative status [ER-]; M19.90 Unspecified osteoarthritis, unspecified site; E78.5 Hyperlipidemia, unspecified
CPT/HCPCS: 36415; 80053; 85025; G0463

== ENCOUNTER → 2020-12-26 16:26 | Outpatient (BNVA) | payer OTHER, SELFPAY | PROVIDERS: PCP Nurse Practitioner; Visit Provider Nurse Practitioner Family | DX: Z20.822 Contact with and (suspected) exposure to COVID-19 (principal); J06.9 Acute upper respiratory infection, unspecified | CPT/HCPCS: 87635 ==

== ENCOUNTER 2022-04-18 18:50 | Emergency (ER) | payer OTHER, SELFPAY ==
--- NOTE | 2022-04-18 18:58 | XRR_ITS ---
PROCEDURE INFORMATION: Exam: XR Right Hand Exam date and time: 04/18/2022 7:06 PM Age: 67 years old Clinical indication: Pain; Hand; Right; Additional info: R hand pain TECHNIQUE: Imaging protocol: Radiologic exam of the Right hand. Views: 3 or more views. COMPARISON: No relevant prior studies available. FINDINGS: Bones/joints: Oblique fractures through the 3rd, 4th, and 5th metacarpal shafts. Soft tissues: Normal. XR/XR hand RT min 3V* [id number] IMPRESSION: Fractures through the metacarpal shafts of the 3rd, 4th, and 5th digits.
--- NOTE | 2022-04-18 20:22 | ED_ITS ---
HPI - Extremity Injury (Upper) General: Chief Complaint: Extremity Injury, Upper Stated Complaint: right hand injury Time Seen by Provider: 04/18/22 20:05 History of Present Illness: Patient is a 67-year-old female comes to the ED with right hand injury. Injury occurred just prior to arrival. Patient took a couple ibuprofen before coming to the ED. 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 She used it and it twisted her hand causing injury. She is complaining of some pain and swelling in right hand now. Any movement of her fingers causes worsening pain. Denies any other injury. Associated symptoms: Denies neck pain or weakness in extremities Review of Systems Const: Denies: fever(s), chills or fatigue Eyes: Denies: change in vision or eye discomfort ENMT: Denies: throat pain, odynophagia, nasal discharge or nasal congestion Card: Denies: chest pain, palpitations, edema, swelling of feet/ankles, dyspnea on exertion or orthopnea Resp: Denies: dyspnea, productive cough or non-productive cough GI: Denies: abdominal pain, nausea, vomiting, diarrhea, constipation or hematochezia : Denies: flank pain, dysuria or hematuria Musc: Reports: extremity pain (right hand) and extremity swelling (right hand); Denies: neck pain or back pain Skin/Breast: Denies: rash or new lesions Neuro: Denies: headache(s), numbness in extremities or weakness in extremities [facility] ED PFSH: Medical History Breast cancer, right Hyperlipidemia Scoliosis Surgical History History of History of right breast biopsy History of thyroid surgery S/P lumpectomy, right breast (~11/03/19) With sentinel lymph node biopsy Family History Family/Other Cancer colon- cancer breast- aunt/grandmother Denies family history of Anesthesia complication Bleeding disorder Social History Smoking and tobacco status: never smoked Second hand smoke exposure: No Alcohol intake: never Adopted: No Caregiver/support person: Yes Lives independently: Yes Household members: spouse Housing: House Marital status: service: No Current occupational status: retired Current occupational exposures/hazards: No Pets and animals: No History of recent travel: No Sexually active: No Current gender identity: Female Jocelyn/Episcopalian: Taoist Special jocelyn needs: No Agree to transfusion: No Financial difficulty paying for basics: Decline to Answer Physical Exam Const: COMMON NORMALS: no acute distress, patient oriented x3, healthy appearing and alert GENERAL APPEARANCE: cooperative and comfortable HENMT: COMMON NORMALS: normocephalic HEAD & SCALP: normocephalic MOUTH: Normal oral and palatal mucosa present THROAT: posterior oropharynx normal and uvula midline Neck/C-Spine: COMMON NORMALS: supple GENERAL: Yes normal visual inspection Resp: COMMON NORMALS: normal respiratory effort, No retractions, No use of accessory muscles and clear to auscultation bilaterally AUSCULTATION: clear to auscultation bilaterally Cardio: COMMON NORMALS: regular rate, regular rhythm, S1 normal heart sound present, S2 normal heart sound present, No gallops present (Cardio), No clicks present (Cardio), No murmurs present (Cardio) and Peripheral pulses 2+ throughout RATE: regular rate RHYTHM: regular rhythm HEART SOUNDS: S1 normal heart sound present and S2 normal heart sound present PERIPHERAL PULSES: Peripheral pulses 2+ throughout GI: COMMON NORMALS: Normal to inspection, nondistended, normoactive bowel sounds present, Soft to palpation, non-tender and no masses PALPATION: Yes Soft to palpation : COMMON NORMALS: Yes no CVA tenderness BLADDER/KIDNEY EXAM: Yes no CVA tenderness Back/Pelvis: COMMON NORMALS: no CVA tenderness Extremity: NARRATIVE EXTREMITY EXAM: Right hand?swelling and tenderness to palpation over metacarpals. Limited range of motion fingers due to pain. Neurovascular intact distally. No obvious or visible deformity. GENERAL: Yes normal exam except as noted Neuro: COMMON NORMALS: patient oriented x3 SENSORIUM/ORIENTATION: Yes alert GAIT: Yes Normal gait present Skin: GENERAL SKIN EXAM: dry skin Course Vital Signs: Vital signs: Vital Signs Temperature 98.2 F 04/18/22 20:26 Pulse Rate 64 04/18/22 20:26 Respiratory Rate 16 04/18/22 20:26 Blood Pressure 144/83 04/18/22 20:26 Pulse Oximetry 98 04/18/22 20:26 MDM - Extremity Injury (Upper) Medical Decision Making Patient is a 67-year-old female comes to the ED with right hand injury. Injury occurred just prior to arrival was caused by the kicked back of a drill twisting her hand. Vitals are stable. Exam shows right hand swelling and tenderness over metacarpals. Neurovascular tact. X-ray shows fractures through the metacarpal shafts of the third fourth and fifth digits. I placed an order with protective services case worker patient be referred to Ortho for follow-up of metacarpal fractures. Patient was put in a ulnar gutter splint and discharged home. Return ED precautions given. Patient understood and agreed with plan. Lab Data Radiology Impressions Hand X-Ray 04/18/22 18:58 IMPRESSION: Fractures through the metacarpal shafts of the 3rd, 4th, and 5th digits. Discharge Plan Discharge Patient Disposition: Home Clinical Impression: Multiple fractures of metacarpal bones Qualifiers: Encounter type: initial encounter Fracture type: closed Qualified Code(s): S62.309A - Unspecified fracture of unspecified metacarpal bone, initial encounter for closed fracture Condition: Stable Prescriptions: No Action cholecalciferol (vitamin D3) 4,000 unit capsule 2,000 unit PO DAILY ivermectin 3 mg tablet PO ascorbic acid (vitamin C) 1,000 mg tablet 1 g PO DAILY vitamin K2 40 mcg tablet 40 mcg PO DAILY iodine 150 mcg tablet PO DAILY selenium 50 mcg tablet 50 mcg PO DAILY Discharge Orders: Discharge ED (Routine); Ordered 04/18/22 Ordered By: Vicente Ann Referrals: Hailee Malloy FNP [Primary Care Provider] - Discharge Diet: Regular Discharge Activity: Limit activity as instructed Patient Instructions: Hand Fracture (ED), Boxer Fracture (ED) Activity Restrictions/Additional Instructions: Follow-up with medical provider as directed. Case management should be counting in the next several days to set up an appointment with Ortho for follow-up and further management of hand fracture. Take [id number] ibuprofen or Tylenol for pain. Keep splint on and dry and limit activity with right hand until cleared by Ortho. Return to the ER or your medical provider if condition worsens. Please read and understand discharge instructions. Thank you for choosing [facility] for your healthcare needs today. Please realize this is an emergency room and that we are providing you with a medical screening exam and this may not be complete and all inclusive of all the testing and or work up that you may need to determine your ailment or severity of your illness. It is very important that you follow up as instructed or that you return to the Emergency Department should you have concerns or if your condition changes or worsens in any way. Coding Level of Care Code ED Assignment Desk Assistant for [facility] Exam Comprehensive
[2022-04-18 20:26] VITALS: BP 144/83; PULSE 64; RESP 16; TEMP 36.8; O2SAT 98; BMI 23.6
[2022-04-18] MEDS: HYDROcodone-acetaminophen 5-325 mg Tablet 2 TAB PO (20:39)
--- NOTE | 2022-04-18 20:39 | PC.NURSE ---
PTS MEDICATION WAS SENT HOME WITH HER PER THAD BELL
--- NOTE | 2022-04-19 10:51 | DCPLANNER ---
Addendum entered by Jaclyn Sher 04/20/22 08:35: all source collection manager received the following message from the ortho clinic regarding follow up appointment: Appointment was cancelled. The note on the cancellation says patient called and told me the [facility] told [facility] she should cancel her appointment with us so she can be seen closer to them. Addendum entered by Jaclyn Sher 04/19/22 11:06: Patient has [facility] insurance, rehabilitation case coordinator sent patients information to Jose with [facility] for the authorization process to be started. Original Note: all source collection manager had message to schedule a follow up appointment for patient with ortho. all source collection manager sent patients information to the front office staff at ortho. Patients information will be printed and reviewed. Clinic will call patient with appointment information.
== END 2022-04-18 20:40 | disposition home or self-care (01) ==
PROVIDERS: Emergency Provider Physician Assistant; PCP Nurse Practitioner
DX: S62.322A Displaced fracture of shaft of third metacarpal bone, right hand, initial encounter for closed fracture (principal); S62.324A Displaced fracture of shaft of fourth metacarpal bone, right hand, initial encounter for closed fracture; S62.326A Displaced fracture of shaft of fifth metacarpal bone, right hand, initial encounter for closed fracture; E78.5 Hyperlipidemia, unspecified; X50.1XXA Overexertion from prolonged static or awkward postures, initial encounter; Y92.89 Other specified places as the place of occurrence of the external cause
CPT/HCPCS: 73130; 99283

== ENCOUNTER 2022-05-31 06:00 | Outpatient (RCR) | payer OTHER, SELFPAY | END 2022-06-04 23:59 | disposition home or self-care (01) | LOC: SOT 06:00 | PROVIDERS: PCP Nurse Practitioner; Visit Provider Physician Assistant Surgical | DX: S62.362D Nondisplaced fracture of neck of third metacarpal bone, right hand, subsequent encounter for fracture with routine healing (principal); X58.XXXD Exposure to other specified factors, subsequent encounter | CPT/HCPCS: 97110; 97166 ==

== ENCOUNTER 2022-06-05 06:00 | Outpatient (RCR) | payer OTHER, SELFPAY | END 2022-07-04 23:59 | disposition home or self-care (01) | LOC: SOT 06:00 | PROVIDERS: PCP Nurse Practitioner; Visit Provider Physician Assistant Surgical | DX: S62.30 Unspecified fracture of other metacarpal bone (principal); X58.XXXS Exposure to other specified factors, sequela | CPT/HCPCS: 97018; 97110; 97140 ==

== ENCOUNTER 2022-07-05 14:46 | Outpatient (CLI) | payer OTHER, SELFPAY ==
--- NOTE | 2022-07-05 14:53 | CT_ITS ---
WS: [id number] CT ABDOMEN PELVIS TECHNIQUE: Noncontrast CT of the abdomen and pelvis with coronal and sagittal reformatted images. CLINICAL INFORMATION: LOWER ABDOMINAL HERNIA COMPARISON: None. DLP: 769.[address] scans at [facility] use at least one of these dose optimization techniques: automated e xposure control; mA and/or kV adjustment per patient size (includes targeted exams where dose is matc hed to clinical indication); or iterative reconstruction. FINDINGS: Lung bases are well aerated. Noncontrast liver is normal. Noncontrast spleen is normal. Small esophag eal hiatal hernia. Lumbar scoliosis convex LEFT. Adrenal glands are normal. No hydronephrosis in eith er kidney. Tiny LEFT renal cyst. Noncontrast pancreas appears normal. Tiny fat-containing umbilical hernia. Ventral abdominal wall hernia eccentric to the RIGHT with evide nce of prior hernia repair. No evidence of recurrent hernia. No fluid collection. Noncontrast gallbladder is normal. Normal caliber noncontrast aorta. Normal sigmoid colon. CT/CT abdomen pelvis wo con [id number] IMPRESSION: 1. Lumbar scoliosis convex LEFT. 2. Prior ventral abdominal wall hernia repair eccentric to the RIGHT. No evide nce of recurrent hernia or fluid collection. 3. Tiny fat-containing umbilical hernia. 4. No other remarkable findings.
[2022-07-05] MEDS: iohexol 350 mg/mL 500 mL Btl (per mL) PO (16:10)
== END 2022-07-05 14:47 | disposition home or self-care (01) ==
LOC: RAD 14:47
PROVIDERS: PCP Nurse Practitioner; Visit Provider Nurse Practitioner
DX: M41.86 Other forms of scoliosis, lumbar region (principal); K42.9 Umbilical hernia without obstruction or gangrene
CPT/HCPCS: 74176; Q9967

== ENCOUNTER 2022-08-15 10:47 | Outpatient (CLI) | payer OTHER, SELFPAY ==
--- NOTE | 2022-08-15 10:56 | MM_ITS ---
WS: [id number] LEFT 3D TOMOSYNTHESIS DIGITAL MAMMOGRAPHY WITH CAD CLINICAL INFORMATION: SCREENING COMPARISON: October 02, 2019 TECHNIQUE: 3 views of the left breast were obtained. FINDINGS: The left breast is composed of heterogeneous fibroglandular density tissue, which can limit the detec tion of small underlying mass lesions. A few incidental punctate calcifications. Vascular calcificati ons. No suspicious focal mass, asymmetry, calcifications, or architectural distortion. No evidence of nicolle gnancy. MM/[place] [id number] IMPRESSION: BI-RADS: 2-Benign FOLLOW UP: 1 Year Follow-up Recommend return to annual diagnostic mammography.
== END 2022-08-15 10:48 | disposition home or self-care (01) ==
LOC: RAD 10:49
PROVIDERS: PCP Nurse Practitioner; Visit Provider Nurse Practitioner
DX: N64.89 Other specified disorders of breast (principal)
CPT/HCPCS: 77061; G0279

== ENCOUNTER 2022-09-10 13:03 | Outpatient (CLI) | payer OTHER, SELFPAY ==
--- NOTE | 2022-09-10 13:18 | XR_ITS ---
WS: [id number] DEXA (DUAL ENERGY X-RAY ABSORPTIOMETRY) Bone mineral density was performed using a Simfinit machine. HISTORY: SCREENING COMPARISON: None available. Lumbar spine BMD (L1-L4): 0.839 g/cm2 T score: -2.8 Z score: -1.0 Total hip BMD: Left: 0.587 g/cm2. T score: -3.3 Z score: -1.9 Right: 0.632 g/cm2. T score: -3.0 Z score: -1.6 10 year probability of a major osteoporotic fracture is 38.7%. Severe LEFT curvature lumbar spine. XR/XR DEXA axial skeleton* [id number] IMPRESSION: OSTEOPOROSIS based upon the WHO classification for females.
== END 2022-09-10 13:04 | disposition home or self-care (01) ==
LOC: RAD 13:10
PROVIDERS: PCP Nurse Practitioner; Visit Provider Nurse Practitioner
DX: Z13.820 Encounter for screening for osteoporosis (principal); M81.0 Age-related osteoporosis without current pathological fracture
CPT/HCPCS: 77080

== ENCOUNTER → 2022-12-18 15:11 | Outpatient (BNVA) | payer OTHER, SELFPAY | PROVIDERS: PCP Nurse Practitioner; Visit Provider Nurse Practitioner Family | DX: L57.0 Actinic keratosis (principal); L72.0 Epidermal cyst; I78.8 Other diseases of capillaries; L81.4 Other melanin hyperpigmentation; D22.5 Melanocytic nevi of trunk; Z71.89 Other specified counseling; L85.3 Xerosis cutis; L57.8 Other skin changes due to chronic exposure to nonionizing radiation | CPT/HCPCS: 17000; 17003; 99213 ==

== ENCOUNTER 2023-08-21 10:53 | Outpatient (CLI) | payer OTHER, SELFPAY ==
--- NOTE | 2023-08-21 11:03 | MM_ITS ---
WS: [id number] Exam: [place] [id number] Date/Time of Exam: 08/21/2023 11:03 AM Reason For Exam: ANNUAL - HX BR CA;RT MST CC, LMO and LML images of the LEFT breast to include tomography are obtained. Comparison made with previous exams 08/15/2022, 10/06/2020, 10/02/2019. No sign of suspicious mass, tumor calcification or architectural distortion. There are scattered area s of fibroglandular density in the LEFT breast. BI-RADS Category: 2 benign finding. MM/[place] [id number] Follow-up: 1 year follow-up
== END 2023-08-21 10:54 | disposition home or self-care (01) ==
LOC: RAD 10:53
PROVIDERS: PCP Nurse Practitioner; Visit Provider Nurse Practitioner
DX: Z85.3 Personal history of malignant neoplasm of breast (principal); Z90.11 Acquired absence of right breast and nipple; R92.322 Mammographic fibroglandular density, left breast
CPT/HCPCS: 77061; G0279

== ENCOUNTER 2023-09-10 08:22 | Outpatient (CLI) | payer OTHER, SELFPAY ==
--- NOTE | 2023-09-10 08:27 | US_ITS ---
WS: [id number] RIGHT UPPER QUADRANT ULTRASOUND HISTORY: ELEVATED LFT'S COMPARISON: None available. Liver: 13.9 cm in length. Normal size liver and echogenicity. No bile duct dilatation or mass. Portal Vein: Normal hepatopetal flow with monophasic waveform. Gallbladder: Normally distended gallbladder with no stones or wall thickening. CBD: 0.3 cm Pancreas: Normal size and echogenicity. Right kidney: 9.8 cm in length. Normal size and echogenicity. No hydronephrosis or mass. Aorta and IVC: Unremarkable abdominal aorta and IVC. No ascites. IMPRESSION: Normal RIGHT upper quadrant ultrasound.
== END 2023-09-10 08:23 | disposition home or self-care (01) ==
LOC: RAD 08:22
PROVIDERS: PCP Nurse Practitioner; Visit Provider Nurse Practitioner
DX: R79.89 Other specified abnormal findings of blood chemistry (principal)
CPT/HCPCS: 76705

== ENCOUNTER → 2023-09-11 08:09 | Outpatient (BNVA) | payer OTHER, SELFPAY | PROVIDERS: PCP Nurse Practitioner; Referring Provider Nurse Practitioner; Visit Provider Surgery | DX: K21.9 Gastro-esophageal reflux disease without esophagitis (principal); Z12.11 Encounter for screening for malignant neoplasm of colon | CPT/HCPCS: 99203; 99214 ==

== ENCOUNTER 2024-04-28 07:45 | Day surgery (SDC) | payer OTHER, SELFPAY ==
[2024-04-28 08:01] VITALS: BP 125/90; PULSE 98; RESP 16; TEMP 36.6; O2SAT 99; BMI 21.3
--- NOTE | 2024-04-28 08:03 | W.PM.OPSFHP ---
Same Day Surgery H&P Indication for Procedure/HPI DATE OF PROCEDURE: April 28, 2024 CHIEF COMPLAINT/INDICATIONFOR SURGICAL PROCEDURE: reflux and need for screening colonoscopy PREOP DIAGNOSIS: reflux and need for screening colonoscopy PLANNED PROCEDURE: Operation Date: 04/28/24 09:00 Proposed Procedures p EGD(Not Applicable) - Oren Ayala MD s Colonoscopy - 84511, 07493, G0121, K21.9, Z12.11(Not Applicable) - Oren Ayala MD Medications/Allergies* Home Medications Medication Instructions Recorded Confirmed Type cholecalciferol (vitamin D3) 100 2,000 unit PO DAILY 10/30/19 04/28/24 History mcg (4,000 unit) capsule vitamin K2 40 mcg tablet 40 mcg PO DAILY 01/05/20 04/28/24 History ascorbic acid (vitamin C) 1,000 mg 1 g PO DAILY 12/26/20 04/28/24 History tablet omeprazole 40 mg capsule,delayed 40 mg PO .QOTHERDAY 09/11/23 04/28/24 History release Multi Vitamin 1 tab PO DAILY 12/10/23 04/28/24 History Probiotic 1 tab PO DAILY 12/10/23 04/28/24 History Allergies/Adverse Reactions Allergy/AdvReac Type Severity Reaction Status Date / Time adhesive tape Allergy rash Verified 03/25/24 10:59 Pertinent History/Comorbid Conditions* Medical History (Updated 09/11/23 @ 10:11 by Oren Ayala MD) Breast cancer, right Scoliosis Hyperlipidemia Surgical History (Updated 11/18/19 @ 08:31 by Fortino Martines MD) S/P lumpectomy, right breast (~11/03/19) With sentinel lymph node biopsy History of thyroid surgery History of right breast biopsy History of Family History (Updated 10/30/19 @ 10:01 by Siria Canada RN) Cancer Family/Other colon- cancer breast- aunt/grandmother Denies family history of Anesthesia complication Bleeding disorder Social History Smoking and tobacco/nicotine status: never used tobacco/nicotine Second hand smoke exposure: No Alcohol intake: never Substance/Drug Use: current Substance/Drug use frequency: daily Other substance/drug use details: GUMMIES Adopted: No Caregiver/support person: Yes Lives independently: Yes Household members: spouse Housing: House Marital status: service: No Current occupational status: retired Current occupational exposures/hazards: No Pets and animals: No Sexually active: No Do you think of yourself as: Straight/Heterosexual Current gender identity: Female Jocelyn/Protestant: Restorationism Special jocelyn needs: No Agree to transfusion: No Pertinent Exam Findings alert, oriented x 3 and clear to auscultation bilaterally Recommendations Surgery/Procedure today Coding Level of Care Code Acute Code for Chg Fwd
[2024-04-28] MEDS: sodium chloride 0.9% 1,000 ML 30 ML IV (08:05)
--- NOTE | 2024-04-28 08:21 | ANES.PREANE2 ---
Pre-Anesthetic Assessment Height/Weight: Height 1.68 m Weight 59.874 kg Temp Pulse Resp BP Pulse Ox O2 Del Method 97.9 F 98 16 125/90 99 Room Air 04/28/24 08:01 04/28/24 08:01 04/28/24 08:01 04/28/24 08:01 04/28/24 08:01 04/28/24 08:01 Preop Diagnosis: reflux and need for screening colonoscopy Operation Date: 04/28/24 09:00 Proposed Procedures p EGD(Not Applicable) - Oren Ayala MD s Colonoscopy - 13000, 01116, G0121, K21.9, Z12.11(Not Applicable) - Oren Ayala MD Familial anesthetic complications: none Was Beta Ramona taken within 24 hours: N/A Was Clonidine taken within 24 hours: N/A Last intake: Intake Last Liquid Date 04/27/24 Last Liquid Time 21:00 Last Solid Date 04/26/24 Last Solid Time 21:00 Social No alcohol and No tobacco Exam alert, oriented x 3 and clear to auscultation bilaterally Airway Mallampati: Class II Dentition: full History/ROS No significant history except as noted Pulmonary None reported CV/HEM None reported None reported Hepatic None reported GI Gastroesophageal Reflux Disease Metabolic Hyperlipidemia [facility] hx breast cancer Neuropsych None reported Anesthetic Plan ASA status: 2 Anesthesia: Anesthesia Evaluation and MAC Risk of > 500 ml blood loss (7ml/kg in children): No Medications/Allergies Home Medications Medication Instructions Recorded Confirmed Last Taken Type cholecalciferol (vitamin D3) 100 2,000 unit PO DAILY 10/30/19 04/28/24 04/21/24 History mcg (4,000 unit) capsule vitamin K2 40 mcg tablet 40 mcg PO DAILY 01/05/20 04/28/24 04/21/24 History ascorbic acid (vitamin C) 1,000 mg 1 g PO DAILY 12/26/20 04/28/24 04/21/24 History tablet omeprazole 40 mg capsule,delayed 40 mg PO .QOTHERDAY 09/11/23 04/28/24 04/27/24 History release Multi Vitamin 1 tab PO DAILY 12/10/23 04/28/24 04/26/24 History Probiotic 1 tab PO DAILY 12/10/23 04/28/24 04/21/24 History ondansetron 8 mg disintegrating 8 mg PO Q8H PRN nausea and 12/11/23 04/28/24 Unknown Rx tablet vomiting #9 tabs Allergies Allergy/AdvReac Type Severity Reaction Status Date / Time adhesive tape Allergy rash Verified 03/25/24 10:59 Current Medications Generic Name Dose Route Start Last Admin Trade Name Freq PRN Reason Stop Dose Admin Sodium Chloride 1,000 mls @ 30 mls/hr 04/28/24 08:00 04/28/24 08:05 Sodium Chloride 0.9% IV 30 mls/hr .Q24H LEONEL Administration PFSH Anesthesia Medical History Breast cancer, right Scoliosis Hyperlipidemia Surgical History S/P lumpectomy, right breast (~11/03/19) With sentinel lymph node biopsy History of thyroid surgery History of right breast biopsy History of Family History Family/Other Cancer colon- cancer breast- aunt/grandmother Denies family history of Anesthesia complication Bleeding disorder Social History Smoking and tobacco/nicotine status: never used tobacco/nicotine Second hand smoke exposure: No Alcohol intake: never Substance/Drug Use: current Substance/Drug use frequency: daily Other substance/drug use details: GUMMIES Adopted: No Caregiver/support person: Yes Lives independently: Yes Household members: spouse Housing: House Marital status: service: No Current occupational status: retired Current occupational exposures/hazards: No Pets and animals: No Sexually active: No Do you think of yourself as: Straight/Heterosexual Current gender identity: Female Jocelyn/Episcopalian: Orthodox Special jocelyn needs: No Agree to transfusion: No Data Anesthesia Cardiac Studies: Echocardiogram Ultrasound 01/01/20
[2024-04-28 09:12] VITALS: BP 101/67; PULSE 98; RESP 16; TEMP 36.1; O2SAT 98
[2024-04-28 09:27] VITALS: BP 94/63; PULSE 80; RESP 18; O2SAT 97
--- NOTE | 2024-04-28 09:40 | ANE.PACU2 ---
Inpatient post-anesthesia follow up: Airway intact: Yes Vital signs: Temperature 97 F Pulse Rate 80 Respiratory Rate 18 Blood Pressure 94/63 Pulse Oximetry 97 Oxygen Delivery Me thod Room Air Oxygen Flow Rate Fraction of Inspir ed Oxygen Hydration adequate: Yes Nausea and vomiting: No Pain level: 1 Mental status: Baseline
== END 2024-04-28 09:40 | disposition home or self-care (01) ==
PROVIDERS: PCP Nurse Practitioner; Visit Provider Surgery
PROC: 0DJ08ZZ Inspection of Upper Intestinal Tract, Via Natural or Artificial Opening Endoscopic (ICD-10-PCS; CPT 43235; principal; 2024-04-28 09:00)
PROC: 0DJD8ZZ Inspection of Lower Intestinal Tract, Via Natural or Artificial Opening Endoscopic (ICD-10-PCS; CPT 45378; 2024-04-28 09:00)
DX: Z12.11 Encounter for screening for malignant neoplasm of colon (principal); E78.5 Hyperlipidemia, unspecified; K21.9 Gastro-esophageal reflux disease without esophagitis; Z85.3 Personal history of malignant neoplasm of breast; K44.9 Diaphragmatic hernia without obstruction or gangrene; K29.70 Gastritis, unspecified, without bleeding
CPT/HCPCS: 43239; 45378; 88305; J2704; J7030

== ENCOUNTER → 2024-05-20 09:24 | Outpatient (BNVA) | payer OTHER, SELFPAY | PROVIDERS: PCP Nurse Practitioner; Visit Provider Surgery | DX: Z12.11 Encounter for screening for malignant neoplasm of colon (principal) | CPT/HCPCS: 99213 ==

== ENCOUNTER 2024-08-26 11:25 | Outpatient (CLI) | payer OTHER, SELFPAY ==
--- NOTE | 2024-08-26 11:30 | MM_ITS ---
WS: [id number] DIAGNOSTIC LEFT DIGITAL TOMOSYNTHESIS MAMMOGRAPHY WITH CAD. HISTORY: HX OF SELF BREAST CA, prior RIGHT mastectomy and LEFT mammoplasty. COMPARISON: 08/21/2023, 08/15/2022, 10/06/2020 Technique: CC, MLO and ML views. Breast composition: There are scattered areas of fibroglandular density. New small cluster of calcifications in the lateral LEFT breast near the 2-3 o'clock axis at a middle depth. There are only a few calcifications which need to be further evaluated. There are a few additi onal scattered calcifications which are not cluster of grouped together anteriorly. No mass. MM/MM diag LT tomosynthesis [id number] IMPRESSION: BI-RADS: 0 - Incomplete: Need additional imaging evaluation. FOLLOW UP: Need Additional Imaging LEFT BREAST: Magnification views of suspicious calcification CC and MLO. Heath Lee
== END 2024-08-26 11:26 | disposition home or self-care (01) ==
LOC: RAD 11:26
PROVIDERS: PCP Nurse Practitioner; Visit Provider Nurse Practitioner
DX: Z12.31 Encounter for screening mammogram for malignant neoplasm of breast (principal); R92.323 Mammographic fibroglandular density, bilateral breasts; R92.1 Mammographic calcification found on diagnostic imaging of breast; R92.8 Other abnormal and inconclusive findings on diagnostic imaging of breast
CPT/HCPCS: 77061; G0279

== ENCOUNTER 2024-10-05 10:27 | Outpatient (CLI) | payer OTHER, SELFPAY ==
--- NOTE | 2024-10-05 10:35 | MM_ITS ---
WS: [id number] ADDITIONAL LEFT DIAGNOSTIC DIGITAL TOMOSYNTHESIS MAMMOGRAPHY WITH CAD. HISTORY: New calcifications. COMPARISON: 08/26/2024, 08/21/2023, 08/15/2022 and 10/06/2020 Technique: Magnification views LEFT CC and MLO. Breast composition: There are scattered areas of fibroglandular density. Small cluster of calcifications near 2-3 o'clock at a middle depth. These calcifications are smooth and round. These may be arterial calcifications. The calcifications have slightly increased in number compared to the prior study. There are a few additional scattered calcifications throughout the breast. No soft tissue mass. MM/MM diag LT tomosynthesis [id number] IMPRESSION: BI-RADS: 3 - Probably Benign. FOLLOW UP: 6 Month Follow-up Recommend magnification views LEFT breast calcifications in 6 months.
== END 2024-10-05 10:28 | disposition home or self-care (01) ==
LOC: RAD 10:28
PROVIDERS: PCP Nurse Practitioner; Visit Provider Nurse Practitioner
DX: R92.8 Other abnormal and inconclusive findings on diagnostic imaging of breast (principal); R92.322 Mammographic fibroglandular density, left breast; R92.1 Mammographic calcification found on diagnostic imaging of breast
CPT/HCPCS: 77061; G0279

== ENCOUNTER 2025-03-16 09:35 | Outpatient (CLI) | payer OTHER, SELFPAY ==
--- NOTE | 2025-03-16 09:40 | MM_ITS ---
WS: [id number] DIAGNOSTIC LEFT DIGITAL BREAST TOMOSYNTHESIS MAMMOGRAPHY WITH CAD HISTORY: 6 MONTH FOLLOW UP OF L BREAST CALCIFICATIONS COMPARISON: 08/26/2024, 10/05/2024 TECHNIQUE: Bilateral craniocaudad, mediolateral oblique, and mediolateral views are submitted with tomosynthesis and SM. Magnification views CC and MLO. Computer aided detection utilized. Breast composition: There are scattered areas of fibroglandular density. There is a small cluster of calcifications in the lateral LEFT breast near 2-3 o'clock which are stable. No associated soft tissue mass. No increase in the number of calcifications. The remaining breast is negative for interval change. MM/MM diag LT tomosynthesis [id number] IMPRESSION: BI-RADS: 3 - Probably Benign. FOLLOW UP: 6 Month Follow-up 6-month follow-up LEFT breast with additional magnification views of the calcif ications.
== END 2025-03-16 09:36 | disposition home or self-care (01) ==
LOC: RAD 09:35
PROVIDERS: PCP Nurse Practitioner; Visit Provider Nurse Practitioner Family
DX: R92.1 Mammographic calcification found on diagnostic imaging of breast (principal); R92.323 Mammographic fibroglandular density, bilateral breasts; R92.8 Other abnormal and inconclusive findings on diagnostic imaging of breast
CPT/HCPCS: 77061; G0279